=== PATIENT | female | born 1970 | race Caucasian/White ===

== ENCOUNTER → 2018-05-21 15:38 | Outpatient (CLI) | payer OTHER, SELFPAY ==
[2014-12-06 10:44] VITALS: BMI 23.6
--- NOTE | 2018-05-21 15:39 | RAD_ITS ---
STUDY: X-RAY - LEFT KNEE REASON FOR EXAM: Pain, history of meniscal repair. TECHNIQUE: 4 view(s) of the knee. COMPARISON: Radiographs 08/15/2014. FINDINGS: Normal visualized distal femur. Normal visualized proximal tibia and fibula. Normal proximal tibiofibular articulation. There is mild joint space narrowing of the medial femorotibial compartment. Normal lateral femorotibial compartment. There are small marginal osteophytes and mild joint space narrowing of the patellofemoral articulation. The soft tissue structures are unremarkable. 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 Electronically Signed: Brodie Plata MD at 15:12 EDT Tel , Service support ,
== END ==
PROVIDERS: Referring Provider Orthopaedic Surgery; Visit Provider Orthopaedic Surgery
DX: R52 Pain, unspecified (principal); Z87.828 Personal history of other (healed) physical injury and trauma
CPT/HCPCS: 73564

== ENCOUNTER 2020-01-11 08:48 | Emergency (ER) | payer OTHER, SELFPAY ==
[2020-01-11 08:49] VITALS: BP 144/86; PULSE 89; RESP 16; TEMP 36.6; O2SAT 100; BMI 25.2
--- NOTE | 2020-01-11 09:00 | RAD_ITS ---
STUDY: X-RAY - RIGHT KNEE REASON FOR EXAM: Female, 49 years old. Injury to right knee yesterday, painful to stand and walk on knee -- medial knee pain TECHNIQUE: 4 view(s) of the knee. COMPARISON: None. FINDINGS: Normal visualized distal femur. Normal visualized proximal tibia and fibula. Normal proximal tibiofibular articulation. Normal medial femorotibial compartment. Normal lateral femorotibial compartment. Normal patellofemoral articulation. The soft tissue structures are unremarkable. RAD/Knee 4 or More Views IMPRESSION: Normal x-ray examination of the knee. Electronically Signed: Bogdan Birch, at 9:46 EST , Service support ,
--- NOTE | 2020-01-11 09:00 | ED.VISSUMM ---
- ER Visit Summary Date of Service: 01/11/20 Chief Complaint: Right knee injury History of Present Illness: The patient is a 49 F who presents with a right knee injury that occurred yesterday while she was at work. Patient states she was pushing a cart of parcels when it hit a bump and stopped. Patient states her knee hit the cart. Patient states the pain is worse over the medial aspect of the right knee and proximal tibia. Patient states the pain is worse when she goes up and down stairs. Patient describes pain is sharp and aching. Patient states she has some throbbing pain at times. Patient denies any paresthesias or weakness. Patient denies any other injuries. Physical Examination: Vital signs are stable. Patient is afebrile. Patient is in no acute distress. Musculoskeletal exam reveals tenderness over the medial aspect of the right knee proximal tibia. There is minimal edema. There is no ecchymosis. There is no bony crepitance or step-off noted. There is good range of motion. Strength is 5/5 in extension of the knee. There are no sensory deficits noted. There is no calf tenderness noted. There is no laxity appreciated. Varus and valgus stress test were negative. Luma's test was negative. Extensor mechanism is intact. Test Results: X-rays of the right knee were obtained. There is no acute fracture. These were interpreted by the radiologist and reviewed by myself. Emergency Department Course and Treatment: Patient was instructed to ice and elevate the right knee. Patient was instructed to take Tylenol or ibuprofen as needed for any pain. Patient was given restrictions for work. Patient was instructed to follow-up with her primary care physician or [facility] in 5 to 7 days. Patient understood and was agreeable with the plan. All questions were answered. Disposition: Discharge home Impression: Right knee contusion This note was generated with [employer] dictation software. It may contain incorrect words, spelling, and punctuation that were not noted in review of the chart prior to signing ED Disposition - Plan for ED Patient: Disposition: Home or Assisted Living Diagnosis: Contusion of right knee, initial encounter Instructions: ED EXTREMITY CONTUSION Lower Referrals: [facility] Doctor,Out of [Primary Care Provider] - 5-7 Days [facility] [GROUP OF PHYSICIANS] - 5-7 Days Additional Instructions: Apply ice to the area. You may take Tylenol or ibuprofen as needed for pain.
--- NOTE | 2020-01-11 10:08 | ED.RN ---
DISCHARGE INSTRUCTIONS GIVEN TO AND REVIEWED WITH PATIENT, PATIENT DENIES QUESTIONS OR CONCERNS AND VOICES UNDERSTANDING OF DISCHARGE INSTRUCTIONS. PT AMBULATES OUT OF ROOM WITHOUT DIFFICULTY.
== END 2020-01-11 10:09 | disposition home or self-care (01) ==
PROVIDERS: Emergency Provider Emergency Medicine; PCP Family Medicine
DX: S80.01XA Contusion of right knee, initial encounter (principal); F17.200 Nicotine dependence, unspecified, uncomplicated; F32.9 Major depressive disorder, single episode, unspecified; X58.XXXA Exposure to other specified factors, initial encounter
CPT/HCPCS: 73564; 99282

== ENCOUNTER → 2020-05-03 20:15 | Outpatient (CLI) | payer OTHER, SELFPAY | PROVIDERS: PCP Family Medicine; Referring Provider Family Medicine; Visit Provider Family Medicine | DX: G47.10 Hypersomnia, unspecified (principal) | CPT/HCPCS: 95810 ==

== ENCOUNTER 2020-12-10 00:44 | Emergency (ER) | payer OTHER, SELFPAY ==
[2020-12-10] VITALS (7 sets, daily range): BP systolic 92–115; BP diastolic 52–86; PULSE 72–110; RESP 14–18; TEMP 36.9; O2SAT 95–100; BMI 26.3
--- NOTE | 2020-12-10 01:13 | EKG12_ITS ---
Test Reason : UNRESPONSIVE Blood Pressure : / mmHG Vent. Rate : 096 BPM Atrial Rate : 096 BPM P-R Int : 208 ms QRS Dur : 076 ms QT Int : 390 ms P-R-T Axes : 027 009 048 degrees QTc Int : 492 ms Normal sinus rhythm Abnormal ECG Confirmed by ROSA M CARRILLO, JOCELYN ([id number]), editor in chief newspaper [employer] ([id number]) on 12/12/2020 8:03:30 AM Referred By: MARICARMEN Confirmed By:JOCELYN MEDEROS MD
--- NOTE | 2020-12-10 01:14 | EDS_ITS ---
HPI History of Present Illness Chief Complaint: Unresponsive Informant: friend Onset/Context/Timing Onset: Today and Hours Context: Sudden Onset Timing: Continuous Current Severity: Mild Maximum Severity: Moderate Narrative Narrative: 50-year-old female very limited informant due to decreased mental status. According to her friend they were [employer] [employer]. She had a most four beers. May have had some edible marijuana. And had onset of mental status change when they were at a bar. They deny any history of falls or trauma. She has not recently been ill. There is no significant past medical history according to the friend. She is not recently been ill or hospitalized. No major surgeries. Prior similar symptoms: No Recent Illness/Hospitalization: No PFSH PFSH Medical History (Updated 12/10/20 @ 03:[address] Erasmo Savage MD) Hemorrhoids Knee pain Home Medications venlafaxine 150 mg capsule,extended release 24 hr 150 mg PO cap 01/19/20 [History Last Taken Unknown] ondansetron 4 mg PO Q8H PRN #7 tab 12/10/20 [Rx Last Taken Unknown] Allergy/AdvReac Type Severity Reaction Status Date / Time No Known Allergies Allergy Verified 01/26/20 10:29 Family History Other Breast cancer Myocardial infarction Social History Smoking Status: Former smoker alcohol intake: current alcohol intake frequency: a few times a month ROS ROS ED ROS Narrative Very limited history from the patient. Obtained from her friend. No recent illness according to the friend. Review of Systems ROS Unobtainable: due to mental status Constitutional Constitutional ED: Denies chills or fever(s) Eyes Eyes: Denies change in vision ENT ENT ED: Denies ear pain or sore throat Cardiovascular Cardiovascular: Denies chest pain Respiratory/Chest Respiratory/Chest: Denies cough or dyspnea Gastrointestinal Gastrointestinal: Denies abdominal pain, diarrhea, nausea or vomiting Genitourinary Genitourinary ED: Denies dysuria Musculoskeletal Musculoskeletal: Denies myalgias Integumentary Denies rash Neurologic Neurologic: Denies headache(s) Psychiatric Psychiatric: Denies depression Endocrine Endocrinology: Denies polyuria Allergic/Immunologic Allergic/Immunologic ED: Denies urticaria EXAM Physical Exam Narrative Exam Narrative: Middle-age female will open her eyes and says a few words. Does not want to follow commands. Appears intoxicated from drugs or alcohol. There is no obvious signs of trauma. Her pulse ox is 98 on room air no hypoxia. Her temperature is 98. She does not look septic or toxic. She is resting comfortably. She is on the monitor. HEENT exam no trauma. Pupils round reactive light. Moist weeks memories. Neck nontender. Lungs clear to auscultation bilaterally. Heart regular rhythm rate about 90 no murmur. Abdomen soft nontender. Extremities nontender no deformity. She does not want to move them. She will do dorsi plantar flexion when requested to. Neurologically decreased mental status. Will open her eyes. Does follow very limited commands. Is uncooperative at times but not violent. Const Vital Signs: 12/10/20 00:46 12/10/20 01:22 12/10/20 02:00 Temperature 98.4 F Temperature Source Temporal Pulse Rate 92 97 87 Respiratory Rate 18 14 16 Blood Pressure 106/66 92/52 L 115/71 Blood Pressure Mean 79 65 85 Pulse Ox 98 95 Oxygen Delivery Method Room Air Room Air 12/10/20 03:02 Temperature Temperature Source Pulse Rate 110 H Respiratory Rate 18 Blood Pressure 100/86 H Blood Pressure Mean 90 Pulse Ox 100 Oxygen Delivery Method Room Air Positive well nourished and well developed; Negative for obese, cachectic, contractures or unkempt General Appearance ED: well developed and NAD; Negative for unkempt, cachectic, contractures, cyanotic, diaphoretic or pallor Nutritional Appearance: Negative for cachectic or obese HEENT Reports moist mucous membranes Negative for trauma or tenderness Eyes PERRL and EOMs intact bilaterally Neck no lymphadenopathy, supple and no JVD General: Negative for tenderness Chest Wall inspection of chest normal Resp normal respiratory effort and clear to auscultation bilaterally Effort and Inspection: Negative for pain with movement Auscultation: Negative for rales, rhonchi or wheezes Cardio regular rate, regular rhythm, S1 normal heart sound, S2 normal heart sound and no murmurs GI normal to inspection, nondistended, normoactive bowel sounds, non-tender, non- distended and no masses Inspection: Negative for abdominal distention Auscultation: normoactive bowel sounds Palpation: soft; Negative for tender, guarding or rebound tenderness present Back/Spine no CVA tenderness Extremity normal to inspection General Extremety ED: Negative for edema or tenderness General Extremity: Negative for edema Neuro No oriented x3 Neuro Narrative: Appears intoxicated either drugs or alcohol or both. Sensorium / Orientation: orientation impaired and lethargic Motor Exam: Negative for strength 5/5 throughout Psych Psych Narrative: Decreased mental status. Appearance: Negative for unkempt Attitude: No agitated Mood & Affect: Negative for anxious or tearful Skin no rashes or lesions noted, no wounds and skin turgor normal General Skin Exam: Negative for jaundice or pallor MDM MDM MDM Narrative Medical decision making narrative: 50-year-old female decreased mental status initially suspect secondary to drugs and/or alcohol. Her exam is benign. She will open her eyes. She will respond to very limited commands. There is no history or signs of trauma. Screening labs are being obtained. An alcohol level. Her blood sugar was 195 per nursing. She will receive IV fluids. Repeat exam at 3:40 AM patient is doing well. She is resting. She is responsive to questioning. I went over her labs with both the patient and her friend. We will observe her in the emergency department for the next several hours and discharge in the morning. Lab Data Attestation: I reviewed the patient's lab results. Lab results narrative: CBC shows a white count 9.9. Hemoglobin is 12.4 Electrolytes show a potassium 3.1. Gap of 11. Normal BUN and creatinine. Glucose of 207. Liver enzymes are normal. Alcohol is elevated at 172. Twice the legal limit. test negative. Labs: Laboratory Results - last 24 hr 12/10/20 12/10/20 12/10/20 01:14 01:31 01:31 WBC 9.9 RBC 4.01 L Hgb 12.4 Hct 38.2 MCV 95.3 MCH 30.9 MCHC 32.5 RDW Std Deviation 42.6 RDW Coeff of Warren 12.2 Plt Count 375 MPV 9.2 Immature Gran % (Auto) 0.400 Neut % (Auto) 55.8 Lymph % (Auto) 36.3 Graham % (Auto) 5.7 Eos % (Auto) 1.4 Baso % (Auto) 0.4 Absolute Neuts (auto) 5.5 Absolute Lymphs (auto) 3.59 Nucleated RBC % 0 Sodium 143 Potassium 3.1 L Chloride 109 H Carbon Dioxide 23.0 Anion Gap 11 BUN 14 Creatinine 0.77 Estim Creat Clear Calc 81.83 Est GFR (MDRD) Af Amer 102 Est GFR (MDRD) Non-Af 84 BUN/Creatinine Ratio 18.2 Glucose 207 H Calcium 8.2 L Total Bilirubin 0.20 AST 14 L ALT 24 Alkaline Phosphatase 87 Total Protein 7.0 Albumin 3.6 Globulin 3.4 Albumin/Globulin Ratio 1.1 Serum , Qual Ethyl Alcohol POC Glucose 195 H 12/10/20 12/10/20 01:31 01:31 WBC RBC Hgb Hct MCV MCH MCHC RDW Std Deviation RDW Coeff of Warren Plt Count MPV Immature Gran % (Auto) Neut % (Auto) Lymph % (Auto) Graham % (Auto) Eos % (Auto) Baso % (Auto) Absolute Neuts (auto) Absolute Lymphs (auto) Nucleated RBC % Sodium Potassium Chloride Carbon Dioxide Anion Gap BUN Creatinine Estim Creat Clear Calc Est GFR (MDRD) Af Amer Est GFR (MDRD) Non-Af BUN/Creatinine Ratio Glucose Calcium Total Bilirubin AST ALT Alkaline Phosphatase Total Protein Albumin Globulin Albumin/Globulin Ratio Serum , Qual NEGATIVE Ethyl Alcohol 172.0 POC Glucose Rhythm Strip Rhythm Strip: Sinus Rhythm Rate: 96 Ectopy: None EKG Initial EKG: Attestation: I personally reviewed and interpreted this EKG as follows: Interpretation: Sinus Rhythm and No Acute Injury Pattern Comments: Normal sinus rhythm rate of 96 no acute signs of NM or ischemia. Discharge Plan Triage Chief Complaint: Unresponsive ED Provider: Erasmo Savage Dx/Rx/DC Orders Clinical Impression: Acute alcohol intoxication Instructions: ED Alcohol Intoxication Prescriptions: New ondansetron 4 mg tablet,disintegrating 4 mg PO Q8H PRN (Reason: nausea and vomiting) Qty: 7 RF: 0 No Action venlafaxine 150 mg capsule,extended release 24hr 150 mg PO RF: 0 Primary Care Provider: Lovely Brunson Referrals: Lovely Brunson MD [Primary Care Provider] - 1-2 Days if not improving Activity Restrictions/Additional Instructions: Plenty of fluids and rest because you will have a hangover tomorrow. Tylenol and Motrin as needed. Zofran as needed for nausea. Disposition Disposition: Home, Self Care
[2020-12-10 01:21] LABS: Bedside Glucose 195 mg/dL (70-110)
[2020-12-10] MEDS: 0.9% Normal Saline 1,000 ML 1000 ML IV (01:34)
[2020-12-10 01:38] LABS: Absolute Lymphocyte Count 3.59 X10^3/uL (0.83-4.51); Absolute Neutrophil Count 5.5 X10^3/uL (2.0-7.7); Basophil# 0.04 X10^3/uL; Basophil% 0.4 % (0-1); Eosinophil# 0.14 X10^3/uL; Eosinophils% 1.4 % (0-5); Hematocrit 38.2 % (37-47); Hemoglobin 12.4 g/dL (12.0-15.0); Lymphocyte # 3.59 X10^3/ul (0.83-4.51); Lymphocyte % 36.3 % (19-41); Mean Corp Hgb Conc 32.5 g/dL (32-36); Mean Corpuscular Hgb 30.9 pg (27.0-32.0); Mean Corpuscular Volume 95.3 fL (81-99); Mean Platelet Vol. 9.2 fl (6.2-12.0); Monocyte# 0.56 X10^3/uL; Monocyte% 5.7 % (0-10); NRBC Flagged by Analyzer 0 % (0-5); Neutrophil # 5.53 X10^3/uL (2.7-7.7); Neutrophil % 55.8 % (47-70); Platelet Count 375 K/mm3 (150-450); RBC Distribution Width CV 12.2 % (11.6-14.6); RBC Distribution Width SD 42.6 fl (35.1-43.9); Red Blood Count 4.01 M/mm3 (4.2-5.4); White Blood Count 9.9 K/mm3 (4.4-11.0)
[2020-12-10 01:53] LABS: ALB/GLOB Ratio 1.1 RATIO (0.9-2.4); AST(SGOT) 14 U/L (15-37); Alanine Aminotransfer ALT/SGPT 24 U/L (13-56); Albumin, Serum 3.6 g/dL (3.2-5.0); Alkaline Phosphatase 87 U/L (45-117); Anion Gap 11 (5-15); BUN 14 mg/dL (7-18); BUN/Creat Ratio 18.2 RATIO (10-20); Calcium,Total 8.2 mg/dL (8.5-10.1); Chloride 109 mmol/L (98-107); Creatinine, Serum 0.77 mg/dL (0.55-1.02); EST Glomerular Filtration Rate 84 mL/min (>60); Est Glom Filt Rate - Afr Amer 102 mL/min (>60); Estimated Creatinine Clearance 81.83 ml/min; Globulin 3.4 g/dL (2.2-4.2); Glucose 207 mg/dL (74-106); Potassium 3.1 mmol/L (3.5-5.1); Sodium Level 143 mmol/L (136-145)
[2020-12-10 02:00] LABS: Internal QC Validated? YES +Cl - CLEAR BKGD; Pregnancy, Serum, hCG Quali. NEGATIVE Negative
== END 2020-12-10 08:05 | disposition home or self-care (01) ==
PROVIDERS: Emergency Provider Emergency Medicine; PCP Family Medicine
DX: F10.129 Alcohol abuse with intoxication, unspecified (principal); Y90.6 Blood alcohol level of 120-199 mg/100 ml; Z79.899 Other long term (current) drug therapy; Z87.891 Personal history of nicotine dependence
CPT/HCPCS: 80053; 82077; 82962; 84703; 85025; 93005; 96360; 99285; A4216

== ENCOUNTER → 2023-01-24 | Outpatient (CLI) | payer OTHER, SELFPAY | END | disposition home or self-care (01) | LOC: LAB 11:28 | PROVIDERS: PCP Family Medicine; Referring Provider Family Medicine; Visit Provider Family Medicine | DX: R19.7 Diarrhea, unspecified (principal) | CPT/HCPCS: 83630; 87177; 87209; 87493; 87506; 89055 ==

== ENCOUNTER → 2023-03-05 | Outpatient (CLI) | payer OTHER, SELFPAY ==
[2023-03-05 18:02] LABS: CRP < 2.90 mg/L (0.0-3.0)
[2023-03-07 15:08] LABS: Endomysial Antibody IgA Negative (Negative); Immunoglobulin A 256 mg/dL (87-352); t-Transglutaminase IgA <2 U/mL (0-3)
== END | disposition home or self-care (01) ==
LOC: MTLAB 15:20
PROVIDERS: PCP Family Medicine; Referring Provider Internal Medicine Gastroenterology; Visit Provider Internal Medicine Gastroenterology
DX: R19.7 Diarrhea, unspecified (principal)
CPT/HCPCS: 36415; 82784; 83516; 86140; 86255

== ENCOUNTER → 2024-06-22 | Outpatient (CLI) | payer OTHER, SELFPAY | END | disposition home or self-care (01) | PROVIDERS: PCP Family Medicine; Referring Provider Otolaryngology Otolaryngology/Facial Plastic Surgery; Visit Provider Otolaryngology Otolaryngology/Facial Plastic Surgery | DX: T78.40XA Allergy, unspecified, initial encounter (principal) | CPT/HCPCS: 36415; 86003 ==